=== PATIENT | male | born 1980 | race Hispanic/Latino ===

== ENCOUNTER 2024-06-02 15:40 | Emergency (ER) | payer OTHER ==
[~2024-06-02] VITALS: Ht 175.3 cm; Wt 90.7 kg
--- NOTE | 2024-06-02 16:09 | ERN ---
ED Note History of Present Illness Stated Complaint: SOB Chief Complaint: Shortness of Breath Time Seen by MD: 15:41 Time Seen by Midlevel: 15:50 Dictation: 43-year-old male coming in with complaints of shortness a breath, dizziness started at 10 but worsened at 3:00 a.m.. Patient states he was at his office working when the symptoms began. Patient states he is currently on testosterone replacement and admits to smoking. Patient states a week ago he was told his blood was too sick and they had to remove some blood at the office. Allergies: Coded Allergies: No Known Drug Allergies (Unverified Allergy, Unknown, 06/02/24) Past Medical History Past Medical History: Hypertension, Other Additional Past Medical Hx: TESTOSTERONE THERAPY Surgical History: None Review of System Dictation Constitutional: Negative for fever,chills, and weight loss Eyes: Negative for injury, pain,redness, and discharge ENT: Negative for injury,pain or swelling Cardiovascular: Negative for chest pain, palpitations, and edema Respiratory: Negative for shortness of breath, cough, and wheezing, Abdomen/GI: Negative for abdominal pain, nausea, vomiting, diarrhea, and constipation Back: Negative for injury and pain : Negative for injury, bleeding and discharge MS/Extremity: Negative for injury and deformity Skin: Negative for rash, and discoloration Neuro: Negative for headache, weakness, numbness, tingling, and seizure Psych: Negative for suicide ideation, homicidal ideation, and hallucinations Review of Systems: was completed Initial Vital Sign VS Vital Signs Date Time Temp Pulse Resp B/P (MAP) Pulse Ox O2 Delivery O2 Flow Rate FiO2 06/02/24 15:48 98.4 87 20 146/95 99 Room Air 0 06/02/24 16:00 21 Physical Exam Dictation General: awake, alert, NAD Head/Face: Normocephalic, atraumatic Eyes: PERRL, EOMI, vision at baseline ENT: oral cavity clear, TMs clear, no signs of infection Neck: Trachea midline, supple, no nuchal rigidity Cardiovascular: RRR, normal S1/S2, No MRGs, no JVD Respiratory: CTAB, no respiratory distress, No rales or wheezes Abdomen: Soft, non-tender, non-distended, normal bowel sounds, no guarding or rebound. Skin: Warm, dry, normal turgor, no rash MS/Extremity: Pulses equal, no cyanosis, neurovascular intact, FROM Neuro: COAx4, GCS 15, strength 5/5, CN 2-12 intact, normal cerebellar exam, normal gait, Psych: Normal behavior, mood, and affect normal Results (Laboratory/Radiology) Laboratory/Radiology Laboratory Tests Test 06/02/24 16:00 06/02/24 16:29 White Blood Count 12.1 K/uL (4.8-10.8) H Red Blood Count 4.93 MIL/uL (4.50-6.20) Hemoglobin 15.8 g/dL (14.0-18.0) Hematocrit 47.1 % (42-54) Mean Corpuscular Volume 95.5 fL (79-99) Mean Corpuscular Hemoglobin 32.0 pg (27.0-33.0) Mean Corpuscular Hemoglobin Concent 33.5 g/dL (32.0-36.0) Red Cell Distribution Width 13.0 % (11.0-15.5) Platelet Count 268 K/uL (130-400) Mean Platelet Volume 9.5 fL (7.5-10.5) Immature Granulocyte % (Auto) 0.6 % (0-1) Neutrophils (%) (Auto) 52.2 % (40.0-77.0) Lymphocytes (%) (Auto) 34.6 % (21.0-51.0) Monocytes (%) (Auto) 9.3 % (3.0-13.0) Eosinophils (%) (Auto) 2.6 % (0.0-8.0) Basophils (%) (Auto) 0.7 % (0.0-5.0) Neutrophils # (Auto) 6.3 K/uL (1.8-7.7) Lymphocytes # (Auto) 4.2 K/uL (1.0-4.8) Monocytes # (Auto) 1.1 K/uL (0.1-1.0) H Eosinophils # (Auto) 0.31 K/uL (0.00-0.70) Basophils # (Auto) 0.09 K/uL (0.00-0.20) Absolute Immature Granulocyte (auto 0.07 K/uL (0-1) Nucleated Red Blood Cells 0.0 % (0.0-0.19) D-Dimer Quantitative (PE/DVT) 201 ng/mL (0-500) Sodium Level 139 mmol/L (136-145) Potassium Level 3.6 mmol/L (3.5-5.1) Chloride Level 103 mmol/L (101-111) Carbon Dioxide Level 27 mmol/L (21-32) Blood Urea Nitrogen 13 mg/dL (7-18) Creatinine 1.0 mg/dL (0.5-1.3) Glomerular Filtration Rate Calc 95 mL/min (>90) Random Glucose 139 mg/dL (70-105) H Total Calcium 9.1 mg/dL (8.5-10.1) Troponin I High Sensitivity 27 ng/L (4-75) Urine Color COLORLESS (YELLOW) Urine Appearance CLEAR (CLEAR) Urine pH 8.0 (5.0-8.0) Urine Specific [place] 1.008 (1.001-1.031) Urine Protein NEGATIVE mg/dL (NEGATIVE) Urine Glucose (UA) NEGATIVE mg/dL (NEGATIVE) Urine Ketones NEGATIVE mg/dL (NEGATIVE) Urine Occult Blood +- (TRACE) (NEGATIVE) H Urine Nitrate NEGATIVE (NEGATIVE) Urine Bilirubin NEGATIVE mg/dL (NEGATIVE) Urine Urobilinogen 0.2 mg/dL (0.2-1.0) Urine Leukocyte Esterase NEGATIVE John/uL Urine RBC 2-5 /HPF (0-1) H Urine WBC 0-1 /HPF (0-1) Urine Bacteria None /HPF (None Seen) Urine Other Casts 1 /LPF (None Seen) Urine Opiates Screen NEGATIVE (NEGATIVE) Urine Barbiturates Screen NEGATIVE (NEGATIVE) Urine Phencyclidine Screen NEGATIVE (NEGATIVE) Urine Amphetamines Screen NEGATIVE (NEGATIVE) Urine Benzodiazepines Screen NEGATIVE (NEGATIVE) Urine Cocaine Screen NEGATIVE (NEGATIVE) Urine Marijuana (THC) Screen NEGATIVE (NEGATIVE) Labs Reviewed?: Yes EKG Comment: EKGs done at 4:06 p.m., or sinus rhythm at a rate of 80. Incomplete RBBB and LAFB. No STEMI interpreted by ER MD X-RAY Comment: [place] [id number] [id number] IMAGING REPORT Signed PATIENT: NATE HULL MR#: [id number] : 1980 SEX: M AGE: 43 LOCATION: [facility] ORDER [id number] STATUS: REG ER REPORT#: [id number] SERVICE 1553 REASON: sob ORDERING PHYSICIAN: NOE HERNANDEZ NP PROCEDURE: CXR1VW - CHEST 1VW CHEST 1VW HISTORY: Shortness of breath COMPARISON: None FINDINGS: A frontal projection of the chest was obtained. No acute pulmonary infiltrates is seen. The heart is borderline enlarged. Prominent interstitial markings are seen. Degenerative changes are seen. No evidence of aortic calcification is seen. IMPRESSION: 1. No acute pulmonary infiltrate is seen. DICTATED BY: SUAD JONES MD DATE: 06/02/241609 ELECTRONICALLY SIGNED BY: SUAD JONES MD DATE: 06/02/241612 CT Scan Comment: [address] [address] IMAGING REPORT Signed PATIENT: NATE HULL MR#: [id number] : 1980 SEX: M AGE: 43 LOCATION: [facility] ORDER [id number] STATUS: REG ER REPORT#: [id number] SERVICE 1634 REASON: rule out PE ORDERING PHYSICIAN: NOE HERNANDEZ NP PROCEDURE: PE CHEST - CT CHEST PE WWO CT ANGIOGRAM OF THE CHEST WITHOUT AND WITH CONTRAST. CT RECONSTRUCTIONS INDICATION: Pulmonary embolism evaluation TECHNIQUE: Routine axial images using 3 mm slice thickness were acquired from the lung apices to the bases before and after the intravenous administration of 100 mL of Omnipaque 350 contrast material using the pulmonary embolism protocol. Maximum Intensity Projection imaging in the sagittal and coronal planes were also provided. CT was performed with one or more of the following dose reduction techniques: Automated exposure control, adjustment of the mA and/or kV according to patient size, or use of iterative reconstruction technique. COMPARISON: None FINDINGS: The contrast bolus is of good quality for diagnosis of pulmonary embolism. The heart size is within normal limits without pericardial effusion. The main pulmonary arteries, segmental branches, and visualized subsegmental pulmonary arteries appear normal without intraluminal filling defects. Pulmonary trunk is not enlarged. No evidence for thoracic aortic aneurysm or dissection. The origins of the great vessels and thoracic aorta appear normal. The visible portions of the trachea and airways are patent. No pleural effusion, pneumothorax, abnormal opacity or consolidation, pulmonary nodule, or mass identified. No axillary, hilar, or mediastinal lymphadenopathy detected. 1.3 cm simple right hepatic lobe cyst. Visible osseous structures are intact. IMPRESSION: No evidence for pulmonary embolism. DICTATED BY: KELVIN BENTON MD DATE: 06/02/241902 ELECTRONICALLY SIGNED BY: KELVIN BENTON MD DATE: 06/02/241908 ED Course ED Course Orders Procedure Category Date Status Time Cbc With Differential LAB 06/02/24 Complete 15:52 Basic Metabolic Panel LAB 06/02/24 Complete 15:52 Troponin I High LAB 06/02/24 Complete Sensitivity 15:52 12 Lead Ekg Tracing- EKG 06/02/24 Logged Technical 15:52 Chest 1vw RAD 06/02/24 Resulted 15:53 D-Dimer LAB 06/02/24 Complete 15:54 Urinalysis Profile LAB 06/02/24 Complete 16:10 Drug Screen Urine LAB 06/02/24 Complete 16:10 Ct Chest Pe Wwo CT 06/02/24 Resulted 16:34 Iohexol (Omnipaque) PHA 06/02/24 Complete 17:47 Current Medications Medications (Trade) Dose Ordered Sig/Diana Route PRN Reason Start Time Stop Time Status Last Admin Dose Admin Iohexol (Omnipaque) 75 ml STK-MED ONCE IV 06/02/24 17:47 06/02/24 17:47 DC Vital Signs Date Time Temp Pulse Resp B/P (MAP) Pulse Ox O2 Delivery O2 Flow Rate FiO2 06/02/24 18:26 98.6 75 16 122/82 97 Room Air* 0 21 06/02/24 17:00 98.6 81 16 130/78 98 Room Air* 0 21 06/02/24 16:00 98.2 88 13 137/82 100 Room Air* 0 21 06/02/24 15:48 98.4 87 20 146/95 99 Room Air 0 HEART Score Response (Comments) Value History: Low suspicion (0) 0 EKG: Normal 0 Age: < 45yrs (0) 0 Risk Factors: 1-2 risk factors (+1) 1 Initial Troponin: Normal limit (0) 0 Total 1 Medical Decision Making MDM MDM: 43-year-old male coming in with complaints of shortness a breath, dizziness started at 10am but worsened at 3:00 pm.. Patient states he was at his office working when the symptoms began. Patient states he is currently on testosterone replacement and admits to smoking. Patient states a week ago he was told his blood was too sick and they had to remove some blood at the office.On physical exam lung sounds are clear. Patient was speaking in full sentences. Abdomen is soft and nondistended. No bilateral lower leg extremity. No signs of fluid overload. Vital signs are stable, not tachypneic, not hypoxic. Blood work unremarkable. Chemistry unremarkable. Troponin is negative. EKGs did not show any ST elevation. 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 CT scan of the chest shows no evidence of pulmonary emb olism. Chest x-ray shows no acute findings. Discussed findings with the patient. Educated patient to follow up with PCP and or with provider the provided testosterone and may need a dose adjustment . Discussed with the patient signs and symptoms of when to return back to the ER. Differential diagnosis: Fluid overload, PE, pneumonia Rationale: Tests considered and ordered secondary to shared decision making include: Previous outside records reviewed: Old ER visits. Risk of complication and/or morbidity or mortality of patient management: None Medications-Per medication reconciliation Need for hospitalization: Patient does not meet criteria for hospitalization. Need for emergency major/minor surgery: No There are no social concerns with this patient. Prescription drug management Prescriptions will include symptomatic care Patient's prior external medical records from other ER visits were reviewed by me as indicated. Prior testing and results from previous visits were reviewed. Prior tests were taken into account with medical decision making and resource utilization, independent historian/historians were used to obtain complete medical history. I independently interpreted the test that were performed, results were reviewed by me and considered findings on radiology if ordered. Medical management and examination interpretation discussions were had by me with other qualified healthcare professionals as indicated for the patient's care. DX & DISP Disposition: Discharge Departure Impression: Primary Impression: Shortness of breath Condition: Stable Additional Instructions: Please follow up with your PCP, return to ER for worsening symptoms. Referrals: NONE (PCP) Time of Disposition: 19:19 I have reviewed the case, and I agree with, Diagnosis and Plan NOE HERNANDEZ NP Jun 02, 2024 16:09
--- NOTE | 2024-06-02 16:13 | HMCIMG ---
CHEST 1VW HISTORY: Shortness of breath COMPARISON: None FINDINGS: A frontal projection of the chest was obtained. No acute pulmonary infiltrates is seen. The heart is borderline enlarged. Prominent interstitial markings are seen. Degenerative changes are seen. No evidence of aortic calcification is seen. IMPRESSION: 1. No acute pulmonary infiltrate is seen.
[2024-06-02 16:20] LABS: BASOPHILS # (AUTO) 0.09 K/uL (0.00-0.20); BASOPHILS % (AUTO) 0.7 % (0.0-5.0); EOSINOPHILS # (AUTO) 0.31 K/uL (0.00-0.70); EOSINOPHILS % (AUTO) 2.6 % (0.0-8.0); HEMATOCRIT 47.1 % (42-54); IMMATURE GRANULOCYTE ABSOLUTE 0.07 K/uL (0-1); LYMPHOCYTES # (AUTO) 4.2 K/uL (1.0-4.8); LYMPHOCYTES % (AUTO) 34.6 % (21.0-51.0); MEAN CORPUSCULAR HGB CONC 33.5 g/dL (32.0-36.0); MEAN CORPUSCULAR VOLUME 95.5 fL (79-99); MONOCYTES # (AUTO) 1.1 K/uL (0.1-1.0); MONOCYTES % (AUTO) 9.3 % (3.0-13.0); NEUTROPHILS # (AUTO) 6.3 K/uL (1.8-7.7); NEUTROPHILS % (AUTO) 52.2 % (40.0-77.0); PLATELET COUNT (AUTO) 268 K/uL (130-400); RED BLOOD CELL COUNT(AUTO) 4.93 MIL/uL (4.50-6.20); WHITE BLOOD COUNT (AUTO) 12.1 K/uL (4.8-10.8)
[2024-06-02 16:29] LABS: POTASSIUM 3.6 mmol/L (3.5-5.1)
[2024-06-02 16:51] LABS: ADD UA MICROSCOPIC YES; APPEARANCE,URINE CLEAR (CLEAR); BILIRUBIN,URINE NEGATIVE (NEGATIVE); COLOR,URINE COLORLESS (YELLOW); GLUCOSE, URINE (UA) NEGATIVE (NEGATIVE); KETONES,URINE NEGATIVE (NEGATIVE); LEUKOCYTE ESTERASE ,URINE NEGATIVE Leu/uL (NEGATIVE); NITRATE,URINE NEGATIVE (NEGATIVE); PROTEIN,URINE NEGATIVE (NEGATIVE); UROBILINOGEN,URINE 0.2 mg/dL (0.2-1.0)
[2024-06-02 16:53] LABS: AMPHET/METH SCREEN,URINE NEGATIVE (NEGATIVE); BARBITURATE SCREEN, URINE NEGATIVE (NEGATIVE); BENZODIAZEPINES SCREEN,URINE NEGATIVE (NEGATIVE); CANNABINOID SCREEN,URINE NEGATIVE (NEGATIVE); COCAINE SCREEN,URINE NEGATIVE (NEGATIVE); MUCUS,URINE RARE LPF (None Seen); OPIATE SCREEN,URINE NEGATIVE (NEGATIVE); OTHER CASTS, URINE 1 /LPF (None Seen); PHENCYCLIDINE SCREEN,URINE NEGATIVE (NEGATIVE); WBC,URINE 0-1 /HPF (0-1)
[2024-06-02] MEDS ORDERED: IOHEXOL-350 75 ML VIAL IV ONE (17:47)
--- NOTE | 2024-06-02 19:09 | HMCIMG ---
CT ANGIOGRAM OF THE CHEST WITHOUT AND WITH CONTRAST. CT RECONSTRUCTIONS INDICATION: Pulmonary embolism evaluation TECHNIQUE: Routine axial images using 3 mm slice thickness were acquired from the lung apices to the bases before and after the intravenous administration of 100 mL of Omnipaque 350 contrast material using the pulmonary embolism protocol. Maximum Intensity Projection imaging in the sagittal and coronal planes were also provided. CT was performed with one or more of the following dose reduction techniques: Automated exposure control, adjustment of the mA and/or kV according to patient size, or use of iterative reconstruction technique. COMPARISON: None FINDINGS: The contrast bolus is of good quality for diagnosis of pulmonary embolism. The heart size is within normal limits without pericardial effusion. The main pulmonary arteries, segmental branches, and visualized subsegmental pulmonary arteries appear normal without intraluminal filling defects. Pulmonary trunk is not enlarged. No evidence for thoracic aortic aneurysm or dissection. The origins of the great vessels and thoracic aorta appear normal. The visible portions of the trachea and airways are patent. No pleural effusion, pneumothorax, abnormal opacity or consolidation, pulmonary nodule, or mass identified. No axillary, hilar, or mediastinal lymphadenopathy detected. 1.3 cm simple right hepatic lobe cyst. Visible osseous structures are intact. IMPRESSION: No evidence for pulmonary embolism.
[2024-06-02 19:43] VITALS: BP 124/76; PULSE 76; RESP 16; TEMP 98.3; O2SAT 98
--- NOTE | 2024-06-03 10:12 | EKG ---
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
== END 2024-06-02 19:47 | disposition home or self-care (01) ==
LOC: EDH 15:40
DX: R06.02 Shortness of breath (principal); R42 Dizziness and giddiness; I10 Essential (primary) hypertension; Z79.899 Other long term (current) drug therapy
CPT/HCPCS: 99285; 71270; 71045; 84484; 80048; 80305; 85025; 85378; 36415; 93005; 81001; Q9967